=== PATIENT | female | born 1955 | race Caucasian/White ===

== ENCOUNTER 2017-06-18 10:46 | Outpatient (CLI) | payer MEDICAID ==
[~2017-06-18] VITALS: Ht 162.6 cm; Wt 79.5 kg
--- NOTE | ~2017-06-18 | HEMODYNAMI ---
PATIENT:EVONNE BATEMAN MEDICAL RECORD: [id number] : 51 LOCATION:D.OPS ADMISSION DATE: 06/18/17 Generatedon:06/18/201715:30 Patient name: EVONNE BATEMAN Patient #: [id number] SSN: : 1955 Date of study: 06/18/2017 Page: Of Hemodynamic Procedure Report Patient Data Patient Demographics Procedure consent was obtained First Name: EVONNE Gender: Female Last Name: BHAVANA : 1955 Patient #: [id number] Age: 62 year(s) Race: Unknown Additional ID: [id number] Contact details [address]: [address] [place] [address] State: [place] City: [place], Zip code: [address] Admission Admission Data Admission Date: 06/18/2017 Admission Time: 10:46 Procedure Procedure Types Cath Procedure Peripheral Cath Diagnostic Procedure Kyphoplasty Kyphoplasty Lumbar Procedure Description Procedure Date Procedure Date: 06/18/2017 Procedure Start Time: 14:29 Procedure Staff Name Function Brandon Flores MD Performing Physician Adolfo Harper RT Monitor Eileen Vaca RT Scrub Frieda Sofia CRNA Additional personnel Procedure Data Cath Procedure Fluoroscopy Diagnostic fluoroscopy Total fluoroscopy Time: 8 time: 8 min min Diagnostic fluoroscopy Total fluoroscopy dose: 594 dose: 594 mGy mGy Hemodynamics Rest Heart Rate: 61 (bpm) Snapshots Pre Cath Intra NCS Post Cath Vital Signs Time Heart Resp SPO2 etCO2 NIBP (mmHg) Rhythm Pain Sedation Rate (ipm) (%) (mmHg) Status Level (bpm) 14:12:27 74 17 99 28.5 158/92(142) NSR 0 (11) 10(A) , No pain 14:16:49 61 18 99 34.5 145/84(126) NSR 0 (11) 10(A) , No pain 14:21:05 62 15 100 33.7 148/89(124) NSR 0 (11) 10(A) , No pain 14:25:23 63 15 99 34.5 148/82(109) NSR 0 (11) 10(A) , No pain 14:29:39 63 17 99 35.9 147/83(108) NSR 0 (11) 10(A) , No pain 14:33:55 69 12 99 0 138/86(98) NSR 0 (11) 10(A) , No pain 14:38:13 62 11 99 41.9 135/75(90) NSR 0 (11) 10(A) , No pain 14:43:08 66 11 99 44.2 127/80(99) NSR 0 (11) 10(A) , No pain 14:47:25 62 14 99 42.7 124/68(102) NSR 0 (11) 10(A) , No pain 14:51:38 61 13 99 9.7 122/69(99) NSR 0 (11) 10(A) , No pain 14:55:40 63 14 99 26.9 110/70(107) NSR 0 (11) 10(A) , No pain 15:00:35 73 12 94 44.2 140/82(116) NSR 0 (11) 10(A) , No pain 15:04:53 71 12 95 34.4 132/77(90) NSR 0 (11) 10(A) , No pain 15:09:07 68 10 96 35.2 134/80(97) NSR 0 (11) 10(A) , No pain 15:13:21 65 11 97 16.4 143/79(105) NSR 0 (11) 10(A) , No pain 15:17:35 68 11 98 34.4 162/100(131) NSR 0 (11) 10(A) , No pain 15:22:34 63 12 98 23.2 Measuring NSR 0 (11) 10(A) , No pain 15:22:40 63 12 98 27.7 183/97(137) NSR 0 (11) 10(A) , No pain 15:26:40 0 No Cuff NSR 0 (11) 10(A) , No pain Procedure Log Time Note 13:46:03 Frieda Sofia CRNA present and monitoring patient for TIVA. 13:46:29 Niki Sanders RN sent for patient. Start room use. 13:46:41 Time tracking: Regular hours 13:46:49 Plan of Care:Hemodynamics will remain stable., Cardiac rhythm will remain stable., Comfort level will be maintained., Respiratory function will remain adequate., Patient/ family verbilizes understanding of procedure., Procedure tolerated without complication., Recovers from procedure without complications.. 13:46:56 Patient received from Outpatients to IR Alert and oriented. Tansferred to table in Prone position. 13:46:58 Correct patient and procedure confirmed by team. 13:46:59 Warm blankets applied, and tahmina hugger turned on for patient comfort. 13:47:01 Signed procedure consent form obtained from patient. 13:47:02 ECG and BP/O2 sat monitors applied to patient. 13:47:03 - 13:48:46 SEE ANESTHESIA NOTE FOR PRE PROCDURE TIVA 13:48:47 - 13:48:57 Lumbar area was prepped with chlora-prep and draped in sterile fashion 13:48:58 Alarms reviewed by R. N. 13:48:58 Sharps counted by scrub and verified by R.N. 14:11:16 ECG and BP/O2 sat monitors applied to patient. 14:11:17 Vital chart was started 14:11:19 Baseline sample Acquired. 14:13:20 Use device set IR Diagnostic 14:13:23 Sterile Angiographic Pack opened to sterile field. 14:13:24 Bag Decanter () opened to sterile field. 14:25:52 Procedure type changed to Cath procedure, Peripheral Cath Diagnostic Procedure, Kyphoplasty, Kyphoplasty Lumbar 14:25:57 Physician arrived 14::58 --------ALL STOP TIME OUT------ 14:25:58 Final Timeout: patient, procedure, and site verified with staff and physician. All members of the team are in agreement. 14:26:09 Lumbar site verified by team. 14:26:18 Sedation plan: TIVA Medication:Propofol 14:29:00 Procedure started. 14:29:00 Full Disclosure recording started 14:29:07 Local anesthetic to Lumbar 1 area with Lidocaine 1% by Brandon Flores MD.INITIAL ACCESS ONLY 14:36:41 Kyphon Epress Kit 15/2 opened to sterile field. 14:36:42 Kyphon BONE BX DEVICE SZ2 opened to sterile field. 14:36:43 Kyphon CALIBRATOR BAROMETERS KIT opened to sterile field. 15:10:46 Procedure ended.(Physican Out) 15:17:11 Fluoroscopy time 08.00 minutes. 15:17:17 Fluoroscopy dose: 594 mGy 15:17:17 Flurop Dose total: 594 15:17:19 Sharps counted by scrub and verified by R.N. 15:17:33 SEE ANESTHESIA NOTE FOR POST PROCEDURE TIVA 15:17:46 Insertion/operative site no bleeding no hematoma. 15:17:54 Post Lumbar area:stable 15:18:01 Post-op/insertion site Left Lumbar area dressed using a 4 x 4 and Tegaderm. 15:18:16 Procedure and supply charges have been captured, reviewed, submitted an d are correct. 15:30:05 Report given to Outpatients. 15:30:08 Patient transfered to Outpatients with Bed. 15:30:38 Vital chart was stopped Device Usage Item Name Manufacture Quantity Catalog Hospital Part Current Minimal Lot# / Number Charge Number Stock Stock Serial# Code Sterile Cardinal [address] [place] [address] [id number] 5 Angiographic Health Pack Bag Decanter Microtek 1 [id number] [id number] 5 () [employer] Kyphon Medtronic 1 [id number] 5 Epress Kit 15/2 Kyphon BONE Medtronic 1 [id number] 5 BX DEVICE SZ2 Kyphon Medtronic 1 [id number] 5 CALIBRATOR BAROMETERS KIT Signature Audit [place] Stage Time Signature Unsigned Intra-Procedure 06/18/2017 Adolfo 3:30:35 PM [place] RT (R) (CV) Signatures Monitor : Adolfo Signature : [place] RT Date : Time : [address] [place] [address]
[2017-06-18 11:40] LABS: BASOPHILS 0.3 % (0-2); EOSINOPHILS 3.3 % (0-7); HEMATOCRIT 49.8 % (36.0-48.0); HEMOGLOBIN 16.6 g/dL (12-16); IMMATURE GRANULOCYTES 0.2 % (0-5); LYMPHOCYTES 24.7 % (15-50); MCH 35.1 pg (26.0-34.0); MCHC 33.3 g/dL (31.0-37.0); MCV 105.3 fL (80.0-100.0); MEAN PLATELET VOLUME 9.9 fL (7.4-10.4); MONOCYTES 10.3 % (2-11); NEUTROPHILS 61.2 % (40-80); PLATELET COUNT 342 10x3/uL (130-400); RBC 4.73 10x6/uL (4.00-5.40); RDW 12.7 % (11.5-14.5); WBC 8.9 10x3/uL (4.8-10.8)
[2017-06-18 11:52] LABS: CALC OSMOLALITY 279 mosm/kg (275-300); CALCIUM 8.6 mg/dL (8.5-10.1); CARBON DIOXIDE 29.8 mmol/L (21.0-32.0); CHLORIDE - SERUM 105 mmol/L (98-107); CREATININE - SERUM 0.8 mg/dL (0.6-1.3); GLUCOSE 86 mg/dL (74-106); POTASSIUM - SERUM 3.7 mmol/L (3.5-5.1); SODIUM 140 mmol/L (136-145); UREA NITROGEN 17 mg/dL (7-18); eGFR NON AFRICAN AMERICAN 76 mL/min (90-120)
[2017-06-18] MEDS ORDERED: LISINOPRIL TAB 10M (11:57)
[2017-06-18] MEDS ORDERED: BUPROPION XL150 MG PO (11:58)
[2017-06-18] MEDS ORDERED: LEXAPRO10 MG PO (11:58)
[2017-06-18] MEDS ORDERED: ZANAFLEX4 MG PO (11:58)
[2017-06-18] MEDS ORDERED: PHENERGAN25 M1 PO (11:59)
[2017-06-18] MEDS ORDERED: HYDROCODON-ACE1 EAC7 PO (11:59)
[2017-06-18 12:07] VITALS: BP 129/70; Ht 162.6 cm; Wt 79.5 kg
[2017-06-18 12:32] LABS: APTT 29.4 SECONDS (22.8-39.4); INR 1.01 (0.85-1.17); PROTIME 12.9 SECONDS (11.6-15.0)
--- NOTE | 2017-06-18 16:48 | NUR ---
VS TAKEN AND PLACED IN CHART
--- NOTE | 2017-06-18 17:59 | NUR ---
IV DC WITH CATHER TIP INTACT
--- NOTE | 2017-06-18 18:00 | NUR ---
DR CINTRON CALLED BACK INFORMED OF BP 151/86 OK TO DC HOME AND TELL PT TO TAKE HER HOME BP MED
== END 2017-06-18 18:15 | disposition home or self-care (01) ==
LOC: D.OPS 10:46 → D.RAD 13:00 → D.OPS 13:00
PROVIDERS: General Practice
DX: M48.56XA Collapsed vertebra, not elsewhere classified, lumbar region, initial encounter for fracture (principal); I10 Essential (primary) hypertension; K21.9 Gastro-esophageal reflux disease without esophagitis; Z01.812 Encounter for preprocedural laboratory examination